=== PATIENT | female | born 1955 | race Caucasian/White ===

== ENCOUNTER 2016-11-10 07:56 | Emergency (ER) | payer OTHER ==
[~2016-11-10] VITALS: Ht 167.6 cm; Wt 60.0 kg
[~2016-11-10 07:56] MED LIST: LEVO25TA36 PO
[2016-11-10 08:01] VITALS: BP 99/52; PULSE 72; RESP 16; TEMP 98.3; O2SAT 99
[2016-11-10] MEDS ORDERED: SODIUM CHLOR 0.9% 1000 ML INJ 1,000 ML IV ONE (08:14)
[2016-11-10] MEDS ORDERED: ACETAMINOPHEN 500 MG CPLT PO ONE (08:15)
[2016-11-10] MEDS ORDERED: SODIUM CHLORIDE 0.9% FLUSH 5 ML FLUSH IVF PRN (08:15)
--- NOTE | 2016-11-10 08:17 | PD ---
HPI Chief Complaint: Syncope/Near-Syncope Time Seen by Provider: 08:08 Travel History International Travel<30 days: No Contact w/Intl Traveler<30days: No Traveled to known affect area: No History of Present Illness HPI This is a 61-year-old female who presents to the emergency department having had an episode of syncope while she was in the shower this morning. She hit the left side of her shower with her right ankle and fell. She did lose consciousness. She did not hit her head. Patient reports moderate severity pain in her right lower extremity, constant, worse with walking, improved with rest. She is never passed out before. She was recently diagnosed with hypertension and started on losartan which she takes 25 mg twice a day. She did not take her blood pressure medicine this morning. She's also been diagnosed as prediabetic. She did drink several glasses of wine last evening. She is on day 5 of an antibiotic for urinary tract infection. PFSH Past Medical History Headaches: Yes Neurologic: Yes (BRAIN ANEURYSM / BLEED 15YRS. AGO) Immunizations Current: Yes Thyroid Disease: Yes Menopausal: Yes Past Surgical History Tonsillectomy: Yes Social History Alcohol Use: Yes (RARELY) Tobacco Use: No Substance Use: No Allergies-Medications (Allergen,Severity, Reaction): Coded Allergies: Contrast Media (Verified Allergy, Severe, HIVES, 11/10/16) Penicillin (Verified Allergy, Intermediate, 11/10/16) Reported Meds & Prescriptions Reported Meds & Active Scripts Active Reported Cefdinir 300 Mg Cap 300 Mg PO BID Trazodone (Trazodone HCl) 100 Mg Tab 100 Mg PO HS Losartan (Losartan Potassium) 25 Mg Tab 25 Mg PO BID Levothyroxine (Levothyroxine Sodium) 100 Mcg Tab 100 Mcg PO DAILY Review of Systems Except as stated in HPI: all other systems reviewed are Neg Physical Exam Narrative GENERAL:Well appearing, no acute distress SKIN: Warm and dry. HEAD: Atraumatic. Normocephalic. EYES: Pupils equal and round. No injection or drainage. ENT: Moist mucous membranes NECK: Trachea midline. CARDIOVASCULAR: Regular rate and rhythm. No murmur appreciated. 2+ DP pulse with normal capillary refill. RESPIRATORY: Clear to auscultation. Breath sounds equal bilaterally. GASTROINTESTINAL: Abdomen soft, non-tender, nondistended. MUSCULOSKELETAL: Tender to palpation along the distal tibia proximal to the ankle with pain with range of motion at the ankle. NEUROLOGICAL: Awake and alert. No obvious cranial nerve deficits. Moving all extremities. PSYCHIATRIC: Appropriate mood and affect; insight and judgment normal. Data Data Last Documented VS Vital Signs Date Time Temp Pulse Resp B/P Pulse Ox O2 Delivery O2 Flow Rate FiO2 11/10/16 08:35 64 16 100 Room Air 11/10/16 08:33 103/56 102/61 92/56 11/10/16 08:01 98.3 Orders Electrocardiogram (11/10/16 08:14) Complete Blood Count With Diff (11/10/16 08:14) Comprehensive Metabolic Panel (11/10/16 08:14) Troponin I (11/10/16 08:14) Urinalysis - C+S If Indicated (11/10/16 08:14) Ecg Monitoring (11/10/16 08:14) Iv Access Insert/Monitor (11/10/16 08:14) Oximetry (11/10/16 08:14) Sodium Chloride 0.9% Flush (Ns Flush) (11/10/16 08:15) Sodium Chlor 0.9% 1000 Ml Inj (Ns 1000 M (11/10/16 08:14) Orthostatic Vital Signs (11/10/16 08:14) Ankle, Complete ([id number]) (11/10/16 ) Tibia/Fibula (Ap/Lat) (11/10/16 ) Acetaminophen (Tylenol) (11/10/16 08:15) Labs Laboratory Tests Test 11/10/16 11/10/16 08:25 08:32 White Blood Count 7.6 TH/MM3 Red Blood Count 4.20 MIL/MM3 Hemoglobin 12.3 GM/DL Hematocrit 36.9 % Mean Corpuscular Volume 87.8 FL Mean Corpuscular Hemoglobin 29.3 PG Mean Corpuscular Hemoglobin 33.4 % Concent Red Cell Distribution Width 13.2 % Platelet Count 410 TH/MM3 Mean Platelet Volume 7.7 FL Neutrophils (%) (Auto) 65.4 % Lymphocytes (%) (Auto) 26.8 % Monocytes (%) (Auto) 5.6 % Eosinophils (%) (Auto) 1.7 % Basophils (%) (Auto) 0.5 % Neutrophils # (Auto) 5.1 TH/MM3 Lymphocytes # (Auto) 2.0 TH/MM3 Monocytes # (Auto) 0.4 TH/MM3 Eosinophils # (Auto) 0.1 TH/MM3 Basophils # (Auto) 0.0 TH/MM3 CBC Comment DIFF FINAL Differential Comment Sodium Level 142 MEQ/L Potassium Level 3.8 MEQ/L Chloride Level 105 MEQ/L Carbon Dioxide Level 25.9 MEQ/L Anion Gap 11 MEQ/L Blood Urea Nitrogen 13 MG/DL Creatinine 1.10 MG/DL Estimat Glomerular Filtration 51 ML/MIN Rate Random Glucose 88 MG/DL Calcium Level 8.7 MG/DL Total Bilirubin 0.3 MG/DL Aspartate Amino Transf 10 U/L (AST/SGOT) Alanine Aminotransferase 17 U/L (ALT/SGPT) Alkaline Phosphatase 63 U/L Troponin I LESS THAN 0.02 NG/ML Total Protein 7.0 GM/DL Albumin 3.8 GM/DL Urine Collection Type CLEAN CATCH Urine Color YELLOW Urine Turbidity CLEAR Urine pH 6.0 Urine Specific [place] 1.010 Urine Protein NEG mg/dL Urine Glucose (UA) NEG mg/dL Urine Ketones NEG mg/dL Urine Occult Blood NEG Urine Nitrite NEG Urine Bilirubin NEG Urine Leukocyte Esterase NEG Urine WBC 0-2 /hpf Microscopic Urinalysis Comment CULT NOT INDICATED Urine Collection Time 0832 [facility] Medical Decision Making Medical Screen Exam Complete: Yes Emergency Medical Condition: Yes Interpretation(s) EKG: Normal sinus rhythm with no ST changes No leukocytosis GFR is 51 Troponin is normal Urinalysis is negative for infection Differential Diagnosis Arrhythmia, nSTEMI, orthostatic hypotension, urinary tract infection, tibial fracture, fibular fracture Narrative Course This is a 61-year-old female who presents to the emergency department having had an episode of syncope this morning in the shower. Orthostatic vital signs reveal a slight decrease in blood pressure with hitting up. She was given a liter of IV hydration. Labs were obtained which were reassuring including a normal urinalysis. EKG demonstrates no arrhythmia or signs of ischemia. I don' t think she requires admission for syncope at this time as she has well appearing and has very few medical problems. I did patent counsel her to hold her blood pressure medicine and to increase her oral hydration. She will follow-up with her primary care physician within the week. I have the patient's right ankle demonstrates an isolated lateral malleolus fracture with good alignment. Patient will be discharged in a splint, given crutches and asked to follow up with orthopedics. Diagnosis Primary Impression: Fx shaft fibula-closed Qualified Code: S82.444A - Closed nondisplaced spiral fracture of shaft of right fibula, initial encounter Additional Impression: Orthostatic hypotension Patient Instructions: General Instructions Additional Instructions: If you develop severe chest pain, shortness of breath, sweating, lightheadedness , dizziness or difficulty breathing return to the emergency department immediately. Followup with your primary care physician in 2-3 days if your symptoms are not resolved. Follow-up with an orthopedic surgeon as soon as possible. Med/Other Pt SpecificInfo: Prescription(s) given, Med Stopped (hold blood pressure medication until seeing primary care physician) Scripts Tramadol 50 Mg Tab50 Mg PO Q6H PRN (PAIN) #14 TAB Prov:Bessie Becker MD 11/10/16 Disposition: 01 DISCHARGE HOME Condition: Stable Bessie Becker MD Nov 10, 2016 08:17
[2016-11-10 08:32] LABS: AUTOMATED NEUTROPHIL # 5.1 TH/MM3 (1.8-7.7); BASOPHIL % 0.5 % (0.0-2.0); EOSINOPHIL # 0.1 TH/MM3 (0-0.4); EOSINOPHIL % 1.7 % (0.0-4.0); HEMATOCRIT 36.9 % (35.0-46.0); HEMO FLAGS DIFF FINAL; LYMPH % 26.8 % (9.0-44.0); MEAN CELL VOLUME 87.8 FL (80.0-100.0); MEAN CORPUSCULAR HEMOGLOBIN 29.3 PG (27.0-34.0); MEAN CORPUSCULAR HGB CONC 33.4 % (32.0-36.0); MONO % 5.6 % (0.0-8.0); NEUT % 65.4 % (16.0-70.0); PLATELET COUNT 410 TH/MM3 (150-450); RED CELL DISTRIBUTION WIDTH 13.2 % (11.6-17.2); WHITE BLOOD COUNT 7.6 TH/MM3 (4.0-11.0)
[2016-11-10 08:33] VITALS: BP_SYST 102; BP_SYST 103; BP_SYST 92; BP_DIAS 56; BP_DIAS 61; RESP 16; O2SAT 100
[2016-11-10 08:40] LABS: CHLORIDE 105 MEQ/L (98-107); POTASSIUM 3.8 MEQ/L (3.5-5.1); SODIUM (NA) 142 MEQ/L (136-145)
[2016-11-10 08:43] LABS: BLOOD, URINE NEG (NEG); GLUCOSE,URINE NEG (NEG); KETONE, URINE NEG (NEG); NITRITE,URINE NEG (NEG)
[2016-11-10 08:44] LABS: ANION GAP 11 MEQ/L (5-15); BICARBONATE 25.9 MEQ/L (21.0-32.0); BLOOD UREA NITROGEN 13 MG/DL (7-18)
[2016-11-10 08:47] LABS: ALT (GPT) 17 U/L (10-53); AST (GOT) 10 U/L (15-37); GLOMERULAR FILTRATION RATE 51 ML/MIN (>89)
[2016-11-10 08:48] LABS: TOTAL BILIRUBIN ADULT 0.3 MG/DL (0.2-1.0)
[2016-11-10 08:50] LABS: ALKALINE PHOSPHATASE 63 U/L (45-117)
[2016-11-10 08:51] LABS: METHOD OF COLLECTION CLEAN CATCH; URINE COLOR YELLOW (YELLW/STRAW); WBC, URINE 0-2 /hpf (0-5)
[2016-11-10] MEDS ORDERED: LEVO100T5 PO (08:51)
[2016-11-10] MEDS ORDERED: LOSA25TA PO (08:51)
[2016-11-10] MEDS ORDERED: CEFD300C PO (08:51)
[2016-11-10] MEDS ORDERED: TRAZ100T4 PO (08:51)
[2016-11-10 08:52] LABS: COMMENT (UR) CULT NOT INDICATED; CULTURE IF INDICATED CULT NOT INDICATED
--- NOTE | 2016-11-10 09:13 | RADHPO ---
EXAM DATE/TIME: 11/10/2016 08:29 [facility] COMPARISON: No previous studies available for comparison. INDICATIONS : Right ankle pain. MEDICAL HISTORY : None. SURGICAL HISTORY : None. ENCOUNTER: Initial ACUITY: 1 day PAIN SCORE: 10/10 LOCATION: Right ankle FINDINGS: Three view exam was performed of the right ankle. Spiral fracture is identified through the distal ri ght fibular shaft. The ankle mortise is intact. No radiopaque foreign bodies are seen. Bony mineral ization is normal. CONCLUSION: Spiral fracture distal right fibular shaft. Intact ankle alignment. Romulo Car MD on November 10, 2016 at 9:08 Board Certified Radiologist. This report was verified electronically.
--- NOTE | 2016-11-10 09:14 | RADHPO ---
EXAM DATE/TIME: 11/10/2016 08:32 [facility] COMPARISON: No previous studies available for comparison. INDICATIONS : Right lower leg pain. Fall MEDICAL HISTORY : None. SURGICAL HISTORY : None. ENCOUNTER: Initial ACUITY: 1 day PAIN SCORE: 10/10 LOCATION: Right Tibia FINDINGS: Two view examination of the right tibia demonstrates a spiral fracture through the distal fibular sha ft. The tibia is intact. Soft tissue swelling seen adjacent to the fracture. Ankle alignment is well maintained. CONCLUSION: Nondisplaced fracture the distal fibular shaft. Intact tibia. Romulo Car MD on November 10, 2016 at 9:12 Board Certified Radiologist. This report was verified electronically.
[2016-11-10] MEDS ORDERED: TRAM50TA PO (09:25)
[2016-11-10 10:02] VITALS: BP 138/65
--- NOTE | 2016-11-10 19:42 | EKG ---
Date Performed: 11/10/2016 Time Performed: 08:18:14 PTAGE: 61 years EKG: Sinus rhythm Normal ECG NO PREVIOUS TRACING DOCTOR: Maco Gaspar Interpretating Date/Time 11/10/2016 19:40:21
== END 2016-11-10 10:04 | disposition home or self-care (01) ==
LOC: PHED 07:56
DX: S82.444A Nondisplaced spiral fracture of shaft of right fibula, initial encounter for closed fracture (principal); I95.1 Orthostatic hypotension; I10 Essential (primary) hypertension; W18.2XXA Fall in (into) shower or empty bathtub, initial encounter; Y93.E1 Activity, personal bathing and showering; Y92.002 Bathroom of unspecified non-institutional (private) residence as the place of occurrence of the external cause
CPT/HCPCS: 29515; 73590; 73610; 80053; 81001; 84484; 85025; 93005; 99284; J7030

== ENCOUNTER 2018-01-28 08:46 | Emergency (ER) | payer OTHER ==
[~2018-01-28] VITALS: Ht 167.6 cm; Wt 60.0 kg
[~2018-01-28 08:46] MED LIST changes: +CEFD300C PO; +LEVO100T5 PO; -LEVO25TA36 PO; +LOSA25TA PO; +TRAM50TA PO; +TRAZ100T4 PO
[2018-01-28 08:52] VITALS: BP 131/58; PULSE 66; RESP 20; TEMP 98; O2SAT 99
[2018-01-28] MEDS ORDERED: TRAZ100T10 PO (09:08)
[2018-01-28] MEDS ORDERED: AMBI5TAB PO (09:08)
--- NOTE | 2018-01-28 09:11 | PD ---
HPI Chief Complaint: Syncope/Near-Syncope Time Seen by Provider: 08:59 Travel History International Travel<30 days: No Contact w/Intl Traveler<30days: No History of Present Illness HPI 62-year-old female states that 630 this morning first thing when she woke up to go the bathroom she had an episode where she passed out and hit her head. She states she also has pain now to her right ankle and calf and right knee after the fall. She states she had an episode like this a year ago where she broke her leg. She states that that was related to medication changes. She states she recently had Ambien added to her medications and trazodone switched from the night to in the morning. She states that she is not having any chest pain or difficulty breathing or any other concurrent complaints. Pain is worse with movement. Quality pain is sharp in her right ankle. She denies any other concurrent complaints. PFSH Past Medical History Diminished Hearing: No Headaches: Yes Hypertension: Yes Neurologic: Yes (BRAIN ANEURYSM / BLEED 15YRS. AGO) Immunizations Current: Yes Thyroid Disease: Yes Menopausal: Yes Past Surgical History Tonsillectomy: Yes Other Surgery: Yes Social History Alcohol Use: Yes (socially) Tobacco Use: No (former) Substance Use: No Allergies-Medications (Allergen,Severity, Reaction): Coded Allergies: diatrizoate meglumine (Unverified Allergy, Severe, HIVES, 01/28/18) gadobenic acid (Unverified Allergy, Severe, HIVES, 01/28/18) gadodiamide (Unverified Allergy, Severe, HIVES, 01/28/18) gadoteridol (Unverified Allergy, Severe, HIVES, 01/28/18) iodixanol (Unverified Allergy, Severe, HIVES, 01/28/18) iohexol (Unverified Allergy, Severe, HIVES, 01/28/18) penicillin G (Unverified Allergy, Intermediate, 01/28/18) Reported Meds & Prescriptions Reported Meds & Active Scripts Active Reported Trazodone (Trazodone HCl) 100 Mg Tablet 200 Mg PO DAILY Ambien (Zolpidem Tartrate) 5 Mg Tab 5 Mg PO HS PRN Levothyroxine (Levothyroxine Sodium) 100 Mcg Tab 100 Mcg PO DAILY Review of Systems Except as stated in HPI: all other systems reviewed are Neg Physical Exam Narrative GENERAL: 62-year-old female in no apparent distress SKIN: Patient has triangular shaped simple laceration noted to bridge of nose HEAD: Normocephalic. EYES: Pupils equal and round. No scleral icterus. No injection or drainage. ENT: No nasal bleeding or discharge. No septal hematoma. Mucous membranes pink and moist. NECK: Trachea midline. No JVD. No midline pain over C-spine with palpation and range of motion CARDIOVASCULAR: Regular rate and rhythm. RESPIRATORY: No accessory muscle use. Clear to auscultation. Breath sounds equal bilaterally. GASTROINTESTINAL: Abdomen soft, non-tender, nondistended. MUSCULOSKELETAL: No obvious deformities. No clubbing. No cyanosis. No edema. Pain with palpation of right ankle and knee, no pain with other joints , neurovascularly intact, no lacerations over, compartments soft. NEUROLOGICAL: Awake and alert. No obvious cranial nerve deficits. Motor grossly within normal limits. Normal speech. PSYCHIATRIC: Appropriate mood and affect; insight and judgment normal. Data Data Last Documented VS Vital Signs Date Time Temp Pulse Resp B/P (MAP) Pulse Ox O2 Delivery O2 Flow Rate FiO2 01/28/18 11:11 66 16 113/66 (82) 98 Room Air 01/28/18 08:52 98.0 Orders Orders Ankle, Complete ([id number]) (01/28/18 09:05) Knee, Complete (4vws) (01/28/18 09:05) Tibia/Fibula (Ap/Lat) (01/28/18 09:05) Electrocardiogram (01/28/18 09:05) Complete Blood Count With Diff (01/28/18 09:05) Comprehensive Metabolic Panel (01/28/18 09:05) Magnesium (Mg) (01/28/18 09:05) Ckmb (Isoenzyme) Profile (01/28/18 09:05) Troponin I (01/28/18 09:05) Act Partial Throm Time (Ptt) (01/28/18 09:05) Prothrombin Time / Inr (Pt) (01/28/18 09:05) Chest, Single Ap (01/28/18 09:05) Ct Brain W/O Iv Contrast(Rout) (01/28/18 09:05) Ecg Monitoring (01/28/18 09:05) Iv Access Insert/Monitor (01/28/18 09:05) Oximetry (01/28/18 09:05) Sodium Chloride 0.9% Flush (Ns Flush) (01/28/18 09:15) Urinalysis - C+S If Indicated (01/28/18 10:25) ^ Knee Immobilizer (01/28/18 10:45) Crutches (01/28/18 10:49) Ed Discharge Order (01/28/18 11:32) Labs Laboratory Tests Test 01/28/18 09:20 01/28/18 10:50 White Blood Count 14.3 TH/MM3 Red Blood Count 4.05 MIL/MM3 Hemoglobin 12.3 GM/DL Hematocrit 35.8 % Mean Corpuscular Volume 88.4 FL Mean Corpuscular Hemoglobin 30.3 PG Mean Corpuscular Hemoglobin Concent 34.3 % Red Cell Distribution Width 12.9 % Platelet Count 376 TH/MM3 Mean Platelet Volume 7.8 FL Neutrophils (%) (Auto) 84.6 % Lymphocytes (%) (Auto) 11.0 % Monocytes (%) (Auto) 3.3 % Eosinophils (%) (Auto) 0.4 % Basophils (%) (Auto) 0.7 % Neutrophils # (Auto) 12.0 TH/MM3 Lymphocytes # (Auto) 1.6 TH/MM3 Monocytes # (Auto) 0.5 TH/MM3 Eosinophils # (Auto) 0.1 TH/MM3 Basophils # (Auto) 0.1 TH/MM3 CBC Comment DIFF FINAL Differential Comment Prothrombin Time 10.5 SEC Prothromb Time International Ratio 1.0 RATIO Activated Partial Thromboplast Time 24.5 SEC Blood Urea Nitrogen 9 MG/DL Creatinine 0.79 MG/DL Random Glucose 90 MG/DL Total Protein 7.8 GM/DL Albumin 4.2 GM/DL Calcium Level 8.7 MG/DL Magnesium Level 2.2 MG/DL Alkaline Phosphatase 55 U/L Aspartate Amino Transf (AST/SGOT) 13 U/L Alanine Aminotransferase (ALT/SGPT) 17 U/L Total Bilirubin 0.2 MG/DL Sodium Level 144 MEQ/L Potassium Level 4.1 MEQ/L Chloride Level 108 MEQ/L Carbon Dioxide Level 26.7 MEQ/L Anion Gap 9 MEQ/L Estimat Glomerular Filtration Rate 74 ML/MIN Total Creatine Kinase 81 U/L Troponin I LESS THAN 0.02 NG/ML Urine Collection Type CLEAN CATCH Urine Color YELLOW Urine Turbidity CLEAR Urine pH 6.0 Urine Specific [place] 1.020 Urine Protein NEG mg/dL Urine Glucose (UA) NEG mg/dL Urine Ketones NEG mg/dL Urine Occult Blood NEG Urine Nitrite NEG Urine Bilirubin NEG Urine Urobilinogen 0.2 MG/DL Urine Leukocyte Esterase NEG Urine WBC 0-2 /hpf Urine Squamous Epithelial Cells 0-5 /hpf Urine Amorphous Sediment MOD Urine Hyaline Casts 0-2 /lpf Urine Fine Granular Casts 0-2 /lpf Microscopic Urinalysis Comment CULT NOT INDICATED Urine Collection Time 1050 [facility] Medical Decision Making Medical Screen Exam Complete: Yes Emergency Medical Condition: Yes Medical Record Reviewed: Yes (Past history confirmed) Interpretation(s) CBC & BMP Diagram 01/28/18 09:20 Total Protein 7.8, Albumin 4.2, Calcium Level 8.7, Magnesium Level 2.2, Alkaline Phosphatase 55, Aspartate Amino Transf (AST/SGOT) 13 L, Alanine Aminotransferase (ALT/SGPT) 17, Total Bilirubin 0.2 Last 24 hours Impressions Tibia/Fibula X-Ray 01/28/18904 Signed Impressions: CONCLUSION: Single view suggesting a cortical discontinuity involving the proximal fibula a t the level of the knee posteriorly. Correlate for pain in this location. No ot her acute abnormality seen. Knee X-Ray 01/28/18904 Signed Impressions: CONCLUSION: Negative examination Head CT 01/28/18904 Signed Impressions: CONCLUSION: 1. Negative CT Head non contrast. Chest X-Ray 01/28/18904 Signed Impressions: CONCLUSION: Negative examination. Ankle X-Ray 01/28/18904 Signed Impressions: CONCLUSION: No evidence of fracture. Differential Diagnosis Fracture, strain, intracranial, anemia Narrative Course We will check blood work, imaging and reevaluate. Syncope is likely related to medication but will need to discuss with primary care physician if available X-ray shows likely proximal fibula fracture and pain is having pain in this area. Will place knee immobilizer and give crutches. Initial ER workup shows no emergent cause of syncope. Will attempt to discuss with her primary for close follow-up, patient with normal hematocrit, no history of heart failure, blood pressure is normal here, no shortness of breath or chest pain offered observation but wanting to go home, not wanting to wait for primary call back and wanting to go and feels comfortable arranging outpatient follow- up, patient denies any new complaints and states that they are feeling better. Patient happy with care, all questions answered. Patient knows that follow up is incumbent on them and to return to the emergency room immediately if new or worsening symptoms develop. Patient given strict return precautions, vitals reviewed and are normal Diagnosis Primary Impression: Syncope Qualified Codes: R55 - Syncope and collapse Additional Impressions: Fibula fracture Qualified Codes: S82.831A - Other fracture of upper and lower end of right fibula, initial encounter for closed fracture Facial laceration Qualified Codes: S01.81XA - Laceration without foreign body of other part of head, initial encounter Patient Instructions: General Instructions Additional Instructions: return as needed, follow with primary tuesday, tylenol as needed Med/Other Pt SpecificInfo: No Change to Meds Disposition: 01 DISCHARGE HOME Condition: Stable Valeri Sal MD Jan 28, 2018 09:11
[2018-01-28] MEDS ORDERED: SODIUM CHLORIDE 0.9% FLUSH 10 ML FLUSH IVF PRN (09:15)
[2018-01-28 09:33] VITALS: RESP 18; O2SAT 99
[2018-01-28 09:50] LABS: PROTHROMBIN TIME - PATIENT 10.5 SEC (9.8-11.6)
[2018-01-28 09:57] LABS: BASOPHIL # 0.1 TH/MM3 (0-0.2); BASOPHIL % 0.7 % (0.0-2.0); EOSINOPHIL # 0.1 TH/MM3 (0-0.4); EOSINOPHIL % 0.4 % (0.0-4.0); HEMATOCRIT 35.8 % (35.0-46.0); HEMOGLOBIN 12.3 GM/DL (11.6-15.3); LYMPHOCYTE # 1.6 TH/MM3 (1.0-4.8); MEAN CELL VOLUME 88.4 FL (80.0-100.0); MEAN CORPUSCULAR HEMOGLOBIN 30.3 PG (27.0-34.0); MEAN CORPUSCULAR HGB CONC 34.3 % (32.0-36.0); MEAN PLATELET VOLUME 7.8 FL (7.0-11.0); MONO % 3.3 % (0.0-8.0); MONOCYTE # 0.5 TH/MM3 (0-0.9); NEUT % 84.6 % (16.0-70.0); PLATELET COUNT 376 TH/MM3 (150-450); RED BLOOD COUNT 4.05 MIL/MM3 (4.00-5.30); RED CELL DISTRIBUTION WIDTH 12.9 % (11.6-17.2); WHITE BLOOD COUNT 14.3 TH/MM3 (4.0-11.0)
[2018-01-28 10:01] LABS: CHLORIDE 108 MEQ/L (98-107); SODIUM (NA) 144 MEQ/L (136-145)
[2018-01-28 10:03] LABS: ALBUMIN 4.2 GM/DL (3.4-5.0); CALCIUM 8.7 MG/DL (8.5-10.1)
[2018-01-28 10:04] LABS: BICARBONATE 26.7 MEQ/L (21.0-32.0); BLOOD UREA NITROGEN 9 MG/DL (7-18); GLUCOSE,RANDOM 90 MG/DL (74-106); MAGNESIUM 2.2 MG/DL (1.5-2.5)
[2018-01-28 10:07] LABS: ALT (GPT) 17 U/L (10-53); CREATININE 0.79 MG/DL (0.50-1.00); GLOMERULAR FILTRATION RATE 74 ML/MIN (>89)
--- NOTE | 2018-01-28 10:07 | RADRPT ---
EXAM DATE: 01/28/2018 9:48 AM EDT AGE/SEX: 62 years / Female INDICATIONS: Fell this AM, has right ankle area pain CLINICAL DATA: This is the patient's initial encounter. Patient reports that signs and symptoms have been present for 1 day and indicates a pain score of 8/10. MEDICAL/SURGICAL HISTORY: None. None. COMPARISON: [facility], ANKLE RIGHT COMPLETE ([id number]), 11/10/2016. . FINDINGS: 3 views of the right ankle demonstrate an old healed fracture deformity involving the distal fibula a lindsey the level of the ankle mortise. The osseous structures are intact and grossly normal in minerali zation and alignment. Soft tissues are unremarkable. CONCLUSION: No evidence of fracture. Electronically signed by: Dory Walden MD 01/28/2018 10:06 AM EDT
[2018-01-28 10:08] LABS: AST (GOT) 13 U/L (15-37); TOTAL BILIRUBIN ADULT 0.2 MG/DL (0.2-1.0); TOTAL PROTEIN 7.8 GM/DL (6.4-8.2)
--- NOTE | 2018-01-28 10:08 | RADRPT ---
EXAM DATE: 01/28/2018 9:57 AM EDT AGE/SEX: 62 years / Female INDICATIONS: Fall today CLINICAL DATA: This is the patient's initial encounter. Patient reports that signs and symptoms have been present for 1 day and indicates a pain score of 8/10. MEDICAL/SURGICAL HISTORY: None. None. COMPARISON: No prior [facility] exams available for comparison. FINDINGS: Bony structures are intact and in normal alignment. Joints are intact without dislocation or signifi cant arthropathy. Osseous density is normal. Soft tissues are unremarkable. No radiopaque foreign bodies seen. CONCLUSION: Negative examination Electronically signed by: Dory Walden MD 01/28/2018 10:07 AM EDT
--- NOTE | 2018-01-28 10:09 | RADRPT ---
EXAM DATE: 01/28/2018 10:01 AM EDT AGE/SEX: 62 years / Female INDICATIONS: Fell today CLINICAL DATA: This is the patient's initial encounter. Patient reports that signs and symptoms have been present for 1 day and indicates a pain score of 8/10. MEDICAL/SURGICAL HISTORY: None. None. COMPARISON: [facility], TIBIA/FIBULA RIGHT (AP/LAT), 11/10/2016. . FINDINGS: AP and lateral views of the tibia and fibula demonstrate a single view suggesting a cortical disconti nuity involving the proximal fibula seen only on the lateral exam. No adjacent soft tissue edema is s een on the frontal exam. Old healed distal fibular fracture deformity. The bones are normal in alignm ent and mineralization. Soft tissues are unremarkable. CONCLUSION: Single view suggesting a cortical discontinuity involving the proximal fibula at the level of the kne e posteriorly. Correlate for pain in this location. No other acute abnormality seen. Electronically signed by: Dory Walden MD 01/28/2018 10:08 AM EDT
[2018-01-28 10:10] LABS: ALKALINE PHOSPHATASE 55 U/L (45-117)
--- NOTE | 2018-01-28 10:10 | RADRPT ---
EXAM DATE: 01/28/2018 9:56 AM EDT AGE/SEX: 62 years / Female INDICATIONS: Syncope with fall CLINICAL DATA: This is the patient's initial encounter. Patient reports that signs and symptoms have been present for 1 day and indicates a pain score of 0/10. MEDICAL/SURGICAL HISTORY: None. None. COMPARISON: No prior [facility] exams available for comparison. FINDINGS: A single AP view of the chest demonstrates the lungs to be symmetrically aerated without evidence of mass, infiltrate or effusion. The cardiomediastinal contours are unremarkable. Osseous structures a re intact. CONCLUSION: Negative examination. Electronically signed by: Dory Walden MD 01/28/2018 10:09 AM EDT
[2018-01-28 10:12] LABS: TROPONIN I LESS THAN 0.02 NG/ML (0.02-0.05)
--- NOTE | 2018-01-28 10:42 | RADRPT ---
EXAM DATE: 01/28/2018 10:33 AM EDT AGE/SEX: 62 years / Female INDICATIONS: Possible syncopal episode today with fall. CLINICAL DATA: This is the patient's initial encounter. Patient reports that signs and symptoms have been present for 1 day and indicates a pain score of 4/10. MEDICAL/SURGICAL HISTORY: Aneurysm, intracranial. Hypertension. Diabetes. Tonsillectomy. RADIATION DOSE: 53.56 CTDI (mGy) COMPARISON: [facility], CT BRAIN W/O CONTRAST, 04/02/2012. . TECHNIQUE: CT of the head without contrast. Using automated exposure control and adjustment of the mA and/or kV according to patient size, radiation dose was kept as low as reasonably achievable to ob tain optimal diagnostic quality images. FINDINGS: Cerebrum: The ventricles are normal for age. No evidence of midline shift, mass lesion, hemorrhage or acute infarction. No extraaxial fluid collections are seen. Posterior Fossa: The cerebellum and brainstem are intact. The 4th ventricle is midline. The cerebe llopontine angle is unremarkable. Extracranial: The visualized portion of the orbits is intact. Skull: The calvaria is intact. No evidence of skull fracture. CONCLUSION: 1. Negative CT Head non contrast. Electronically signed by: Dory Walden MD 01/28/2018 10:41 AM EDT
[2018-01-28 10:59] LABS: BILIRUBIN, URINE NEG (NEG); BLOOD, URINE NEG (NEG); GLUCOSE,URINE NEG (NEG); KETONE, URINE NEG (NEG); NITRITE,URINE NEG (NEG); URINE COLOR YELLOW (YELLW/STRAW); URINE LEUKOCYTE ESTERASE NEG (NEG)
[2018-01-28 11:11] VITALS: BP 113/66; PULSE 66; RESP 16; O2SAT 98
[2018-01-28 11:17] LABS: AMORPHOUS SEDIMENT, URINE MOD; HYALINE CAST, URINE 0-2 /lpf (RARE); SQUAMOUS EPITHELIAL CELL URINE 0-5 /hpf (0-5); WBC, URINE 0-2 /hpf (0-5)
--- NOTE | 2018-01-28 11:43 | PD ---
Physical Exam Date Seen by Provider: Jan 28, 2018 Narrative I was asked to repair a laceration to the nasal bridge that occurred during the injury. LACERATION LOCATION: Mid nose bridge LENGTH: L-shaped, 5 mm NUMBER OF STITCHES/ELIZABETH: 6 Steri-Strips REPAIR: The area of the laceration was prepped with Betadine and sterilely draped.The wound was copiously irrigated and explored without evidence of foreign body, tendon injury or neurovascular injury. The wound was closed using Steri-Strip. This was a single layer repair. A sterile dressing was applied. The patient was advised to keep the dressing clean and dry. Patient tolerated the procedure well. Advised on wound care Data Data Last Documented VS Vital Signs Date Time Temp Pulse Resp B/P (MAP) Pulse Ox O2 Delivery O2 Flow Rate FiO2 01/28/18 11:11 66 16 113/66 (82) 98 Room Air 01/28/18 08:52 98.0 Orders Orders Ankle, Complete ([id number]) (01/28/18 09:05) Knee, Complete (4vws) (01/28/18 09:05) Tibia/Fibula (Ap/Lat) (01/28/18 09:05) Electrocardiogram (01/28/18 09:05) Complete Blood Count With Diff (01/28/18 09:05) Comprehensive Metabolic Panel (01/28/18 09:05) Magnesium (Mg) (01/28/18 09:05) Ckmb (Isoenzyme) Profile (01/28/18 09:05) Troponin I (01/28/18 09:05) Act Partial Throm Time (Ptt) (01/28/18 09:05) Prothrombin Time / Inr (Pt) (01/28/18 09:05) Chest, Single Ap (01/28/18 09:05) Ct Brain W/O Iv Contrast(Rout) (01/28/18 09:05) Ecg Monitoring (01/28/18 09:05) Iv Access Insert/Monitor (01/28/18 09:05) Oximetry (01/28/18 09:05) Sodium Chloride 0.9% Flush (Ns Flush) (01/28/18 09:15) Urinalysis - C+S If Indicated (01/28/18 10:25) ^ Knee Immobilizer (01/28/18 10:45) Crutches (01/28/18 10:49) Ed Discharge Order (01/28/18 11:32) Labs Laboratory Tests Test 01/28/18 09:20 01/28/18 10:50 White Blood Count 14.3 TH/MM3 Red Blood Count 4.05 MIL/MM3 Hemoglobin 12.3 GM/DL Hematocrit 35.8 % Mean Corpuscular Volume 88.4 FL Mean Corpuscular Hemoglobin 30.3 PG Mean Corpuscular Hemoglobin Concent 34.3 % Red Cell Distribution Width 12.9 % Platelet Count 376 TH/MM3 Mean Platelet Volume 7.8 FL Neutrophils (%) (Auto) 84.6 % Lymphocytes (%) (Auto) 11.0 % Monocytes (%) (Auto) 3.3 % Eosinophils (%) (Auto) 0.4 % Basophils (%) (Auto) 0.7 % Neutrophils # (Auto) 12.0 TH/MM3 Lymphocytes # (Auto) 1.6 TH/MM3 Monocytes # (Auto) 0.5 TH/MM3 Eosinophils # (Auto) 0.1 TH/MM3 Basophils # (Auto) 0.1 TH/MM3 CBC Comment DIFF FINAL Differential Comment Prothrombin Time 10.5 SEC Prothromb Time International Ratio 1.0 RATIO Activated Partial Thromboplast Time 24.5 SEC Blood Urea Nitrogen 9 MG/DL Creatinine 0.79 MG/DL Random Glucose 90 MG/DL Total Protein 7.8 GM/DL Albumin 4.2 GM/DL Calcium Level 8.7 MG/DL Magnesium Level 2.2 MG/DL Alkaline Phosphatase 55 U/L Aspartate Amino Transf (AST/SGOT) 13 U/L Alanine Aminotransferase (ALT/SGPT) 17 U/L Total Bilirubin 0.2 MG/DL Sodium Level 144 MEQ/L Potassium Level 4.1 MEQ/L Chloride Level 108 MEQ/L Carbon Dioxide Level 26.7 MEQ/L Anion Gap 9 MEQ/L Estimat Glomerular Filtration Rate 74 ML/MIN Total Creatine Kinase 81 U/L Troponin I LESS THAN 0.02 NG/ML Urine Collection Type CLEAN CATCH Urine Color YELLOW Urine Turbidity CLEAR Urine pH 6.0 Urine Specific [place] 1.020 Urine Protein NEG mg/dL Urine Glucose (UA) NEG mg/dL Urine Ketones NEG mg/dL Urine Occult Blood NEG Urine Nitrite NEG Urine Bilirubin NEG Urine Urobilinogen 0.2 MG/DL Urine Leukocyte Esterase NEG Urine WBC 0-2 /hpf Urine Squamous Epithelial Cells 0-5 /hpf Urine Amorphous Sediment MOD Urine Hyaline Casts 0-2 /lpf Urine Fine Granular Casts 0-2 /lpf Microscopic Urinalysis Comment CULT NOT INDICATED Urine Collection Time 1050 MDM Supervised Visit with IMKA: No Diagnosis Primary Impression: Syncope Qualified Codes: R55 - Syncope and collapse Additional Impressions: Fibula fracture Qualified Codes: S82.831A - Other fracture of upper and lower end of right fibula, initial encounter for closed fracture Facial laceration Qualified Codes: S01.81XA - Laceration without foreign body of other part of head, initial encounter Referrals: Pramod Villalobos MD (PCP) call for appointment Patient Instructions: General Instructions, Leg Fracture (ED), Laceration (ED) , Syncope (ED), Steristrips (ED) Departure Forms: Tests/Procedures Additional Instruction: return as needed, follow with primary tuesday, tylenol as needed Disposition: 01 DISCHARGE HOME Condition: Stable Mis Castillo Jan 28, 2018 11:43
--- NOTE | 2018-01-28 14:32 | EKG ---
Date Performed: 01/28/2018 Time Performed: 09:13:47 PTAGE: 62 years EKG: Sinus rhythm NORMAL ECG PREVIOUS TRACING : 11/10/2016 08.18 Since the previous tracing, no significant change noted DOCTOR: Chico Mckinnon Interpretating Date/Time 01/28/2018 14:30:32
== END 2018-01-28 11:52 | disposition home or self-care (01) ==
LOC: PHED 08:46
DX: R55 Syncope and collapse (principal); S82.831A Other fracture of upper and lower end of right fibula, initial encounter for closed fracture; S01.81XA Laceration without foreign body of other part of head, initial encounter; W19.XXXA Unspecified fall, initial encounter; I10 Essential (primary) hypertension; E07.9 Disorder of thyroid, unspecified; Z87.891 Personal history of nicotine dependence
CPT/HCPCS: 70450; 71045; 73564; 73590; 73610; 80053; 81001; 82550; 83735; 84484; 85025; 85610; 85730; 93005; 99285; E0113